=== PATIENT | male | born 1995 | race Caucasian/White ===

== ENCOUNTER 2017-05-18 18:21 | Emergency (ER) | payer OTHER ==
[2017-05-18] MEDS ORDERED: Cephalexin CAP* 500 MG PO ONE (19:58)
--- NOTE | 2017-05-18 19:58 | ED ---
Skin Complaint - HPI Summary HPI Summary: 21M presents with possible infection of right lower leg. He had a skin biopsy performed a couple days ago at [facility]. He has not been placing anything on the biospy area. He states last night he noticed some redness and it continues to spread. He denies any fever. He states there was some yellow drainage from the site this morning. - History of Current Complaint Chief Complaint: EDSoftTissueLowExtr Time Seen by Provider: 05/18/17 19:20 Stated Complaint: POSSIBLE INFECTION ON RT LEG Pain Intensity: 0 PMH/Surg Hx/FS Hx/Imm Hx Endocrine/Hematology History: Denies: Hx Anticoagulant Therapy Respiratory History: Denies: Hx Asthma Infectious Disease History: No Infectious Disease History: Denies: Traveled Outside the [place] in Last 30 Days - Family History Known Family History: Negative: Cardiac Disease - Social History Alcohol Use: Rare Substance Use Type: Reports: None Smoking Status (MU): Never Smoked Tobacco Review of Systems Negative: Fever Negative: Chest Pain Negative: Shortness Of Breath Positive: Rash - right calf All Other Systems Reviewed And Are Negative: Yes Physical Exam Triage Information Reviewed: Yes Vital Signs On Initial Exam: Initial Vitals Temp Pulse Resp BP Pulse Ox 97.5 F 77 16 162/96 100 05/18/17 18:28 05/18/17 18:28 05/18/17 18:28 05/18/17 18:28 05/18/17 18:28 Vital Signs Reviewed: Yes Appearance: Positive: Well-Appearing Skin: Positive: Other - 1cm biopsy area with surrounding erythem that is 4cm by 6cm that is not warm to touch on right medial calf Head/Face: Positive: Normal Head/Face Inspection Eyes: Positive: Normal, Conjunctiva Clear Respiratory/Lung Sounds: Positive: Clear to Auscultation, Breath Sounds Present Cardiovascular: Positive: Normal, RRR Musculoskeletal: Positive: Strength/ROM Intact - right leg, Other - good pulses Diagnostics - Vital Signs Vital Signs Temp Pulse Resp BP Pulse Ox 05/18/17 18:28 97.5 F 77 16 162/96 100 - Laboratory Lab Statement: Any lab studies that have been ordered have been reviewed, and results considered in the medical decision making process. Course/Dx - Course Course Of Treatment: 21M presents with possible infection of right lower leg. He had a skin biopsy performed a couple days ago at [facility]. He has not been placing anything on the biospy area. He states last night he noticed some redness and it continues to spread. He denies any fever. He states there was some yellow drainage from the site this morning. on exam area of biopsy with surrounding erythema. area is not warm to touch. could be just irriation vs cellulitis but will treat as cellulitis to be on the safe side with keflex. patient understands and agrees with plan - Differential Diagnoses - Skin Complaint Differential Diagnoses: Cellulitis, Contact Dermatitis, Other - healing wound - Diagnoses Provider Diagnoses: Cellulitis of right leg Discharge - Discharge Plan Condition: Good Disposition: HOME Prescriptions: Cephalexin CAP* [Keflex CAP*] 500 mg PO TID #29 cap Patient Education Materials: Cellulitis (ED) Referrals: [facility] [Primary Care Provider] - Additional Instructions: Take Keflex 3 times a day for 10 days Follow up with primary within 5 days if no improvement Return to ED if develop fever, area of redness spreads, or any new or worsening symptoms
[2017-05-18 20:13] VITALS: BP 111/92
== END 2017-05-18 20:09 | disposition home or self-care (01) ==
LOC: ED 18:21
DX: L03.115 Cellulitis of right lower limb (principal); R21 Rash and other nonspecific skin eruption
CPT/HCPCS: 99281; A9270-GY